=== PATIENT | female | born 1965 | race Two or more races ===

== ENCOUNTER 2016-10-07 10:28 | Emergency (ER) | payer OTHER ==
[~2016-10-07] VITALS: Ht 165.1 cm; Wt 88.5 kg
[2016-10-07 15:01] LABS: BASOPHIL % 0.5 % (0-2)
[2016-10-07 15:02] LABS: PLATELET COUNT 467 x10^3mcL (130-400); RED CELL DISTRIBUTION WIDTH 18.9 % (11.5-14.5)
[2016-10-07 15:38] VITALS: BP 118/73
== END 2016-10-07 15:38 | disposition home or self-care (01) ==
LOC: ED 10:28
PROVIDERS: Emergency Medicine
DX: N85.8 Other specified noninflammatory disorders of uterus (principal); N83.201 Unspecified ovarian cyst, right side; D64.9 Anemia, unspecified